=== PATIENT | female | born 1995 | race Caucasian/White ===

== ENCOUNTER → 2018-11-19 15:56 | Emergency (ER) | payer BC ==
[~2018-11-19 15:56] MED LIST: Sertraline* 50 MG TAB PO ONE
--- NOTE | 2018-11-19 16:23 | ED ---
Psychiatric Complaint - HPI Summary HPI Summary: This patient is a 23 year old female presenting to [facility] with a chief complaint of depression. Patient states she has a long hx of depression. Patient states that normally, her depression becomes bad and lets up after the winter. However this time, her depression has not eased up at all. She states that it is getting harder to go to work. Patient denies SI, however. Symptoms aggravated by nothing. Symptoms alleviated by nothing. Patient does not take any medication and does not have a therapist. - History Of Current Complaint Chief Complaint: EDMentalHealth Time Seen by Provider: 11/19/18 16:08 Hx Obtained From: Patient Onset/Duration: Still Present Timing: Constant Severity Currently: Mild Character: Depressed Aggravating Factor(s): Nothing Alleviating Factor(s): Nothing Has Suicidal: Denies: Thoughts - Allergies/Home Medications Allergies/Adverse Reactions: Allergies Allergy/AdvReac Type Severity Reaction Status Date / Time lactose Allergy Unknown Verified 11/19/18 15:59 Reaction Details PMH/Surg Hx/FS Hx/Imm Hx Previously Healthy: Yes Opthamlomology History: Denies: Hx Legally Blind EENT History: Denies: Hx Deafness Psychiatric History: Reports: Hx Depression Infectious Disease History: No Infectious Disease History: Denies: Traveled Outside the [place] in Last 30 Days - Family History Known Family History: Positive: Hypertension - Social History Lives: With Family Alcohol Use: Occasionally Hx Substance Use: Yes Substance Use Type: Reports: Marijuana Hx Tobacco Use: No Smoking Status (MU): Never Smoked Tobacco Review of Systems Negative: Fever Positive: Depressed, Other - Negative: SI All Other Systems Reviewed And Are Negative: Yes Physical Exam - Summary Physical Exam Summary: Appearance: well appearing, no pain distress Skin: warm, dry, reflects adequate perfusion Head/face: normal Eyes: EOMI, SHELDON ENT: mucous membranes moist Neck: supple, non-tender Respiratory: CTA, breath sounds present Cardiovascular: RRR, pulses symmetrical Abdomen: non-tender, soft Bowel Sounds: present Musculoskeletal: normal, strength/ROM intact Neuro: normal, sensory motor intact, A&Ox3 Psych: normal affect Triage Information Reviewed: Yes Vital Signs On Initial Exam: Initial Vitals Temp Pulse Resp BP Pulse Ox 97.9 F 104 14 138/75 97 11/19/18 15:59 11/19/18 15:59 11/19/18 15:59 11/19/18 15:59 11/19/18 15:59 Vital Signs Reviewed: Yes Diagnostics - Vital Signs Vital Signs Temp Pulse Resp BP Pulse Ox 11/19/18 15:59 97.9 F 104 14 138/75 97 - Laboratory Lab Statement: Any lab studies that have been ordered have been reviewed, and results considered in the medical decision making process. Course/Dx - Course Course Of Treatment: Patient with long-standing depression presents with worsening. No SI, HI. She has contracted for safety. I discussed her care with mental health/crisis who agrees that outpatient therapy with starting SSRI here. I started Zoloft 50 mg and will continue this daily. She was given follow-up at family services in [place] where she lives. She will also follow up with primary care physician is given referral line for prescribing of further medications. - Differential Dx/Clinical Impression Differential Diagnosis/HQI/PQRI: Positive: Anxiety, Depression, Suicidal Ideation Provider Diagnosis: Depression Discharge - Sign-Out/Discharge Documenting (check all that apply): Patient Departure Patient Received Moderate/Deep Sedation with Procedure: No - Discharge Plan Condition: Improved Disposition: HOME Prescriptions: Sertraline* [Zoloft*] 50 mg PO DAILY #30 tab Patient Education Materials: Depression (ED) Referrals: [facility] [Outside] Dyllan RANGEL,Allyson [Medical Doctor] - Additional Instructions: [facility] Family counselor in [place], [place] Address: [address] [place] [address] Opens 8AM Mon Return with worsening depression, thoughts of suicide, new symptoms, worse or other concerns. Discontinue THC as discussed. Primary care referral line has also been provided to you. Follow-up with a primary care doctor for evaluation of your depression medication. - Billing Disposition and Condition Condition: IMPROVED Disposition: Home - Attestation Statements Document Initiated by Scribe: Yes Documenting Scribe: Marquis Berg Provider For Whom Taty is Documenting (Include Credential): Rodney Goodwin MD Scribe Attestation: Marquis Prince scribed for Rodney Goodwin MD on 11/19/18 at 1841. Scribe Documentation Reviewed: Yes Provider Attestation: The documentation as recorded by the Marquis laboy accurately reflects the service I personally performed and the decisions made by me, Rodney Goodwin MD Status of Scribe Document: Viewed
[2018-11-19 17:10] VITALS: BP 0/0
== END | disposition home or self-care (01) ==
LOC: ED 15:56
DX: F32.9 Major depressive disorder, single episode, unspecified (principal)
CPT/HCPCS: 99282; A9270-GY

== ENCOUNTER 2018-12-23 15:20 | Emergency (ER) | payer BC ==
[2018-12-23 16:25] VITALS: BP 128/59
--- NOTE | 2018-12-23 17:17 | UC ---
Throat Pain/Nasal Bimal HPI - HPI Summary HPI Summary: Per instructional manager: "Elevated temperature (tmax 99.6), intermittent bilateral ear pain, PND, sore throat aggrevated by swallowing, neck pain aggrevated by turning side to side, mild cough that patient relates to PND, myalgias (now resolved), and intermittent chills/sweats for two days. No known fever. Sore throat is the most bothersome symptom." -here w/ her brother in [facility] -states that her nml temp is 97, so she is concerned aboiut temp of 99. -no exudate. no sinus paion. no asthma. no wheezing. + cough. + stuffy nose. + ear pain. some mild swelling b/l anterior cx neck causing it to be "stiff anteriorly. - History of Current Complaint Chief Complaint: UCRespiratory Stated Complaint: SORE THROAT/STIFF NECK Time Seen by Provider: 12/23/18 16:56 Hx Last Menstrual Period: 11/30/18 Pain Intensity: 8 - Allergies/Home Medications Allergies/Adverse Reactions: Allergies Allergy/AdvReac Type Severity Reaction Status Date / Time lactose Allergy Unknown Verified 12/23/18 16:20 Reaction Details Home Medications: Home Medications Acetaminophen/Caffeine [Excedrin Tension Headache Cplt] 2 each PO Q6H PRN [History Confirmed 12/23/18] PMH/Surg Hx/FS Hx/Imm Hx Previously Healthy: Yes Psychological History: Depression - Surgical History Surgical History: Yes Surgery Procedure, Year, and Place: Tonsillectomy, ~2003, [place] - Family History Known Family History: Positive: Hypertension, Respiratory Disease - sister w/ asthma - Social History Alcohol Use: Occasionally Substance Use Type: Marijuana Substance Use Comment - Amount & Last Used: Occasionally Smoking Status (MU): Current Some Day Smoker When Did the Patient Quit Smoking/Using Tobacco: 10/2018 Review of Systems All Other Systems Reviewed And Are Negative: Yes Constitutional: Positive: Negative Skin: Positive: Negative. Negative: Rash Eyes: Positive: Negative ENT: Positive: Sore Throat, Ear Ache, Nasal Discharge. Negative: Sinus Pain/ Tenderness Respiratory: Positive: Cough - mild. Negative: Shortness Of Breath Cardiovascular: Positive: Negative Gastrointestinal: Positive: Negative Genitourinary: Positive: Negative Motor: Positive: Negative Neurovascular: Positive: Negative Musculoskeletal: Positive: Negative Neurological: Positive: Negative Psychological: Positive: Negative Is Patient Immunocompromised?: No Physical Exam Triage Information Reviewed: Yes Appearance: Well-Appearing, No Pain Distress, Well-Nourished - smiling Vital Signs: Initial Vital Signs Temp 98.7 F 12/23/18 16:17 Pulse 100 12/23/18 16:17 Resp 16 12/23/18 16:17 BP 128/59 12/23/18 16:17 Pulse Ox 100 12/23/18 16:17 Vital Signs Reviewed: Yes Eye Exam: Normal Eyes: Positive: Conjunctiva Clear ENT: Positive: Pharynx normal - except fopr + PND. nop exudate. no abscess. voice nml, Nasal congestion, Nasal drainage, TMs normal. Negative: TM bulging, TM dull, TM red, Tonsillar swelling, Tonsillar exudate, Hoarse voice, Sinus tenderness Neck exam: Normal Neck: Positive: Supple, Nontender, No Lymphadenopathy. Negative: Nuchal Rigidity Respiratory Exam: Normal Respiratory: Positive: Lungs clear, Normal breath sounds, No respiratory distress, No accessory muscle use. Negative: Crackles, Rhonchi, Stridor, Wheezing Cardiovascular Exam: Normal Cardiovascular: Positive: RRR, No Murmur Abdominal Exam: Normal Abdomen Description: Positive: Nontender Musculoskeletal Exam: Normal Neurological Exam: Normal Psychological Exam: Normal Skin Exam: Normal Throat Pain/Nasal Course/Dx - Course Course Of Treatment: not c/w strep (afebrils, + cough, + nasal congestion, throat exam nml) -viral in nauture - Differential Dx/Diagnosis Differential Diagnosis/HQI/PQRI: Laryngitis, Pharyngitis, URI Provider Diagnosis: Upper respiratory infection Discharge - Sign-Out/Discharge Documenting (check all that apply): Patient Departure All imaging exams completed and their final reports reviewed: No Studies - Discharge Plan Condition: Stable Disposition: HOME Patient Education Materials: Upper Respiratory Infection (ED) Referrals: No Primary Care Phys,[facility] [Primary Care Provider] - [facility] [Provider Group] - 1 Week Additional Instructions: There is no evidence for any bacterial infection at this time. You should follow up sooner if your symptoms increase. - Billing Disposition and Condition Condition: STABLE Disposition: Home
== END 2018-12-23 17:27 | disposition home or self-care (01) ==
LOC: UCCORT 15:20
DX: J06.9 Acute upper respiratory infection, unspecified (principal); F17.290 Nicotine dependence, other tobacco product, uncomplicated
CPT/HCPCS: 99211; G0463